=== PATIENT | male | born 1985 | race Caucasian/White ===

== ENCOUNTER 2021-01-21 16:59 | Observation (INO) | payer OTHER, SELFPAY ==
--- NOTE | ~2021-01-21 | CT_ITS ---
EXAMINATION: CT abdomen pelvis w con DATE: 01/21/2021 22:02 INDICATION: Right lower quadrant abdominal pain TECHNIQUE: Computed tomography (CT) of the abdomen and pelvis was performed with 100 cc Omnipaque 350 intravenous contrast. Automated exposure control and iterative reconstruction technique were employe d. Exam dose: 309.18 mGy-cm total exam DLP. COMPARISON: None. FINDINGS: The lung bases are clear of infiltrate or consolidation. Normal heart size. No pericardial or pleural effusion. A 2.6 cm stone is noted in the gallbladder. No gallbladder wall thickening or pericholecystic fluid o r fat stranding. No bile duct or pancreatic duct dilatation. No hepatic, this splenic or pancreatic space-occupying mass lesion is detected. No pancreatic calcifi cation. Splenic vertical dimension up to 11.7 cm, within normal limits. Normal morphology of the adrenal glands. No renal mass lesion or apparent urinary tract calculus or hydroureteronephrosis. The urinary bladder and prostate gland are unremarkable. Normal caliber of the abdominal aorta, without any macroscopic atherosclerotic calcification. No intr aperitoneal or retroperitoneal or pelvic mass lesion or adenopathy or ascites is evident. There are numerous shotty nonenlarged mesenteric and right lower quadrant lymph nodes. The appendix measures up to 8.6 cm diameter and there is mild fat stranding near the tip of the cecum and base of the appendix. Clinical correlation is advised for suspected appendicitis. There is no ap parent perforation or abscess. There is a moderately prominent of fecal material in the colon. No bowel obstruction or intraperitone al free air is evident. Very small fat-containing umbilical hernia. No inguinal hernia is detected. IMPRESSION: The appendix measures up to 8.67 m diameter with mild periappendiceal fat stranding, sug gesting appendicitis; no evidence of perforation or abscess Cholelithiasis Reviewed, dictated and finalized at [facility]. Reviewed, dictated and finalized at [facility]. IMPRESSION: The appendix measures up to 8.67 m diameter with mild periappendic eal fat stranding, suggesting appendicitis; no evidence of perforation or absce ss Cholelithiasis
[2021-01-21 17:21] VITALS: BP 135/89; PULSE 116; RESP 14; TEMP 37.2; O2SAT 99
[2021-01-21 17:39] LABS: Basophils Absolute Auto 0.1 K/mm3 (0.0-0.1); Basophils Percent Auto 0.7 % (0.2-1.2); Eosinophils Absolute Auto 0.1 K/mm3 (0-0.3); Eosinophils Percent Auto 0.6 % (0-4.4); Hematocrit 45.8 % (42.0-52.0); Hemoglobin 16.5 g/dL (14.0-18.0); Immature Granulocyte Absolute 0.02 K/mm3 (0.00-0.031); Immature Granulocyte Percent A 0.2 % (0-0.5); Lymphocytes Absolute Auto 1.22 K/mm3 (0.9-3.2); Lymphocytes Percent Auto 13.9 % (18.3-44.2); Mean Corpuscular Hemoglobin 30.8 pg (26-34); Mean Corpuscular Volume 85.4 fl (80-100); Monocytes Absolute Auto 0.8 K/mm3 (0.1-0.6); Monocytes Percent Auto 8.7 % (2.6-8.5); Neutrophils Absolute Auto 6.6 K/mm3 (1.3-6.7); Neutrophils Percent Auto 75.9 % (45.5-73.1); Platelet Count Result 159 k/mm3 (150-375); Red Blood Count 5.36 M/mm3 (4.6-6.20); Red Cell Distribution Width 11.7 % (11.5-14.5); White Blood Count 8.8 K/mm3 (4.5-10.0)
[2021-01-21 17:48] LABS: Alanine Aminotransferase 15 U/L (4-50); Albumin Level 5.1 g/dL (3.5-5.1); Alkaline Phosphatase 55 U/L (38-126); Anion Gap 10 mmol/L (8-16); Aspartate Amino Transferase 25 U/L (17-59); Bilirubin,Total 0.8 mg/dL (0.2-1.3); Blood Urea Nitrogen 13 mg/dL (9-20); Calcium 9.5 mg/dL (8.4-10.2); Carbon Dioxide 29 mmol/L (22-30); Chloride 100 mmol/L (98-107); Estimated CRCL calculation 74 ml/min; Estimated Glomerular Filt Rate > 60; Glucose 102 mg/dL (75-110); Lipase 48 U/L (23-300); Potassium 3.8 mmol/L (3.4-5.0); Sodium 139 mmol/L (137-145)
[2021-01-21 17:58] LABS: Add Urine Microscopic? YES; Appearance Urine Cloudy (Clear); Bilirubin Urine Negative (Negative); Blood Urine Negative (Negative); Color Urine Yellow (Yellow); Glucose Urine UA 1+ mg/dL (Negative); Ketones Urine Trace mg/dL (Negative); Leukocyte Esterase Ur Negative LEU/UL (Negative); Mucus Urine Heavy /lpf; Nitrate Urine Negative (Negative); Protein Urine 2+ mg/dL (Negative); RBC Urine 0-2 /hpf (0-2); Specific Grav Ur 1.026 (1.001-1.035); Squamous Epithelial Cell Urine Rare /hpf (Few); WBC Urine 0-3 /hpf
[2021-01-21 19:18] VITALS: BP 129/99; PULSE 115; RESP 19; O2SAT 100
--- NOTE | 2021-01-21 19:40 | PC.NURSE ---
Pt resting on cart in its lowest position with call button and personal items within reach. IV inserted and pt updated on poc. All questions and concerns addressed. Pt denies pain and discomfort at this time as well as nausea and emesis. Pt advised to press call button for assistance.
--- NOTE | 2021-01-21 19:54 | ED.ABDPAIN ---
HPI - Abdominal Pain General Chief Complaint: Abdominal Pain Stated Complaint: right lower abdomen pain, bloated Time Seen by Provider: 01/21/21 18:44 Source: patient Mode of arrival: ambulatory Limitations: no limitations History of Present Illness HPI narrative: Patient is a 35-year-old male who presents complaining of right lower quadrant pain x1 day. He reports pain was mild starting yesterday and has increased over the course of the day. He reports pain with palpation. He denies nausea, vomiting or diarrhea. He reports fever of 99.5 earlier today. He denies taking wxid-cjm-zpslmiy medications prior to arrival. Patient denies significant medical history. MD elicited complaint: abdominal pain Related Data Allergies Allergy/AdvReac Type Severity Reaction Status Date / Time No Known Allergies Allergy Verified 01/21/21 19:19 Review of Systems Review of Systems: Narrative: CONSTITUTIONAL: Denies fever, chills, or sweats. EYES: Denies visual changes, redness, or discharge. ENT: Denies rhinorrhea, congestion, sore throat, or otalgia. CARDIOVASCULAR: Denies chest pain, palpitations, or edema. RESPIRATORY: Denies cough or dyspnea. GASTROINTESTINAL: Reports right lower quadrant pain GENITOURINARY: Denies dysuria or hematuria. SKIN: Denies rash or itching. MUSCULOSKELETAL: Denies back pain, joint pain, or myalgia. NEUROLOGIC: Denies headache, numbness, dizziness, or weakness. PSYCHIATRIC: Denies anxiety or depression. [facility] Past Medical History Medical History No significant past medical history Surgical History Surgical History (Updated 01/21/21 @ 19:57 by RIMMA Rowe) No significant past surgical history Family History Family History (Updated 01/21/21 @ 19:57 by RIMMA Rowe) Other No significant family history Social History Social History (Updated 01/21/21 @ 19:57 by RIMMA Rowe) Smoking status: Former smoker Alcohol intake: current Alcohol use details: Occasional Substance use: never Gender identity (if verbalized by the patient): Male Comments At the time of signature, I have reviewed and agree with nursing past medical, surgical, social, and family history unless otherwise noted. Please see nursing chart for further information. There is no relevant family history pertinent to the presenting complaint. Exam Narrative: Exam Narrative: GENERAL: Well-appearing, well-nourished, and in no acute distress. HEAD: Normocephalic, atraumatic. EYES: EOMI. No redness or drainage. Conjunctiva are normal. ENT: Mucous membranes pink and moist. Nares clear. No rhinorrhea. TMs normal bilaterally. Throat normal. Uvula midline. NECK: AROM. Supple. No lymphadenopathy. CHEST: No respiratory distress. Clear to auscultation. HEART: Regular rate and rhythm. No murmur appreciated. Normal peripheral pulses. GI: Soft, without distention, right-sided tenderness with palpation. Bowel sounds normal in all quadrants. MUSCULOSKELETAL: No bony tenderness. EXTREMITIES: Normal range of motion. No edema. SKIN: Warm, dry, no rash. NEURO: No focal deficits. Alert and oriented x3. Gait steady. PSYCH: Normal affect. No signs of depression or anxiety. Course Vital Signs Vital signs: Vital Signs Temperature 37.2 C 01/21/21 17:21 Pulse Rate 116 H 01/21/21 17:21 Respiratory Rate 14 01/21/21 17:21 Blood Pressure 135/89 01/21/21 17:21 Pulse Oximetry 99 01/21/21 17:21 Temperature 37.2 C 01/21/21 21:40 Pulse Rate 112 H 01/21/21 21:40 Respiratory Rate 18 01/21/21 21:40 Blood Pressure 139/85 01/21/21 21:40 Pulse Oximetry 99 01/21/21 21:40 Reviewed. Patient has been instructed to follow-up with his PCP regarding his blood pressure. MDM - Abdominal Pain MDM Narrative Medical decision making narrative: Patient's CT was positive for appendicitis. Cholelithiasis is also seen on CT. Spoke with [facility]
--- NOTE | 2021-01-21 20:31 | PC.NURSE ---
Pt presents to ED with complaints of right lower quadrant pain. Pt states initial onset was yesterday and pain became more predominant today. Pt denies nvd, fever and chills. Pt states at this time he is not experiencing and pain or discomfort unless area is palpated. Pt alert and oriented x4. Vitals are stable and pt in no obvious distress. Pt provided a blanket and advised to press call button for assistance. Pt aware of poc and all questions and concerns addressed.
[2021-01-21 20:33] VITALS: BP 133/87; PULSE 108; RESP 18; O2SAT 99
--- NOTE | 2021-01-21 21:30 | PC.NURSE ---
CT called to verify if theyre coming to scan pt and was advised that machine was down due to power outage and they have been backed up. States she will come for pt as soon as she gets a chance.
[2021-01-21 21:40] VITALS: BP 139/85; PULSE 112; RESP 18; TEMP 37.2; O2SAT 99
--- NOTE | 2021-01-21 21:45 | PC.NURSE ---
Pt to ct via cart.
--- NOTE | 2021-01-21 21:57 | PC.NURSE ---
Pt returned from ct and is now resting on cart with call button and personal items within reach. Pt advised to press call button for assistance.
--- NOTE | 2021-01-21 22:56 | PC.NURSE ---
Pt provided lunch box and emily mist per ok from EDMD. Pt resting on cart in its lowest position with call button and personal items within reach. Pt advised to press call button for assistance.
[2021-01-21 23:51] VITALS: BP 137/89; PULSE 113; RESP 16; TEMP 37.3; O2SAT 98
[2021-01-22] VITALS (13 sets, daily range): BP systolic 118–160; BP diastolic 76–96; PULSE 82–111; RESP 14–20; TEMP 36.3–37.2; O2SAT 98–100; BMI 20.1
[2021-01-22] MEDS: SODIUM CHLORIDE 0.9% IV 1,000 ML 125 ML IV CONT (00:06)
--- NOTE | 2021-01-22 00:13 | PC.NURSE ---
Pt ambulated in [place] to restroom with steady gait noted.
--- NOTE | 2021-01-22 00:14 | PC.NURSE ---
Report called to [address] [place] [address]. Ok to send pt to floor.
--- NOTE | 2021-01-22 00:15 | PC.NURSE ---
Pt now back in room resting on cart in its lowest position with call button and personal items within reach. Pt advised to press call button for assistance. Pt updated on poc and advised that he will be NPO until surgery and voices his understanding.
--- NOTE | 2021-01-22 01:02 | ADMGEN ---
This patient, Davonte Edwards, was admitted to 2 Medical Room 242-01. Patient/family oriented to hospital policies and general routines including ID bracelet, bed and alarms, visiting hours, pain management, procedures, bathroom and other care routines, personal items, smoking policy, room service/diet, and visiting hours. Information on how to activate the Rapid Response Team has been discussed. Patient/Family are encouraged to report perceived risks to care and to ask questions if they do not understand what they are told or what they should do.
--- NOTE | 2021-01-22 07:45 | PC.NURSE ---
To OR via stretcher. Voiding without difficulty.
--- NOTE | 2021-01-22 07:57 | WPDANESEPPF ---
Anes - Initial Pre Proc Eval Procedure: Operation Date: 01/22/21 09:00 Proposed Procedures p Laparoscopic Appendectomy - Nika Toth MD Date/Time: 01/22/21 07:57 Surgeon: Nika Toth MD Pre Op Diagnosis: appendicitis Patient Data Age: 35 Gender: M Height: 5 ft 6 in Weight: 56.6 kg Last Vital Signs Temp 37.0 C 01/22/21 05:32 Pulse 90 01/22/21 05:32 Resp 16 01/22/21 05:32 BP 118/76 01/22/21 05:32 Pulse Ox 100 01/22/21 05:32 Allergies Allergy/AdvReac Type Severity Reaction Status Date / Time No Known Allergies Allergy Verified 01/22/21 01:47 Home Medications Medication Instructions Recorded Confirmed Type No Home Medications 01/22/21 01/22/21 History Laboratory Tests 01/21/21 01/21/21 01/21/21 17:25 17:25 17:42 WBC 8.8 K/mm3 K/mm3 (4.5-10.0) RBC 5.36 M/mm3 M/mm3 (4.6-6.20) Hgb 16.5 g/dL g/dL (14.0-18.0) Hct 45.8 % % (42.0-52.0) MCV 85.4 fl fl (80-100) MCH 30.8 pg pg (26-34) MCHC 36.0 g/dl g/dl (32-36) RDW 11.7 % % (11.5-14.5) Plt Count 159 k/mm3 k/mm3 (150-375) MPV 11.0 fl H fl (7.4-10.4) Immature Gran % (Auto) 0.2 % % (0-0.5) Neut % (Auto) 75.9 % H % (45.5-73.1) Lymph % (Auto) 13.9 % L % (18.3-44.2) [place] % (Auto) 8.7 % H % (2.6-8.5) Eos % (Auto) 0.6 % % (0-4.4) Baso % (Auto) 0.7 % % (0.2-1.2) Lymph # (Auto) 1.22 K/mm3 K/mm3 (0.9-3.2) [place] # (Auto) 0.8 K/mm3 H K/mm3 (0.1-0.6) Eos # (Auto) 0.1 K/mm3 K/mm3 (0-0.3) Baso # (Auto) 0.1 K/mm3 K/mm3 (0.0-0.1) Abs Immat Gran (auto) 0.02 K/mm3 K/mm3 (0.00-0.031) Absolute Neuts (auto) 6.6 K/mm3 K/mm3 (1.3-6.7) Absolute Nucleated RBC 0.0 K/mm3 K/mm3 (0.0-0.012) Nucleated RBC % 0.0 % % (0.0-0.2) Sodium 139 mmol/L mmol/L (137-145) Potassium 3.8 mmol/L mmol/L (3.4-5.0) Chloride 100 mmol/L mmol/L (98-107) Carbon Dioxide 29 mmol/L mmol/L (22-30) Anion Gap 10 mmol/L mmol/L (8-16) BUN 13 mg/dL mg/dL (9-20) Creatinine 1.10 mg/dL mg/dL (0.7-1.3) Estim Creat Clear Calc 74 ml/min ml/min Estimated GFR > 60 (59 - ) Glucose 102 mg/dL mg/dL (75-110) Calcium 9.5 mg/dL mg/dL (8.4-10.2) Total Bilirubin 0.8 mg/dL mg/dL (0.2-1.3) AST 25 U/L U/L (17-59) ALT 15 U/L U/L (4-50) Alkaline Phosphatase 55 U/L U/L (38-126) Total Protein 9.0 g/dL H g/dL (6.3-8.2) Albumin 5.1 g/dL g/dL (3.5-5.1) Lipase 48 U/L U/L (23-300) Urine Color Yellow (Yellow) Urine Appearance Cloudy H (Clear) Urine pH 5.0 (5.0-9.0) Ur Specific [place] 1.026 (1.001-1.035) Urine Protein 2+ mg/dL H mg/dL (Negative) Urine Glucose (UA) 1+ mg/dL H mg/dL (Negative) Urine Ketones Trace mg/dL mg/dL (Negative) Ur Blood (Man) Negative (Negative) Urine Nitrate Negative (Negative) Urine Bilirubin Negative (Negative) Urine Urobilinogen 4.0 mg/dL H mg/dL (<2.0) Leukocyte Esterase Rfl Negative MATT/UL MATT/UL (Negative) Urine RBC 0-2 /hpf /hpf (0-2) Urine WBC 0-3 /hpf /hpf Ur Squamous Epith Cells Rare /hpf /hpf (Few) Urine Mucus Heavy /lpf H /lpf Patient hx anesthesia problems: none Family hx anesthesia problems: none [facility] Past Medical History Medical History (Updated 01/21/21 @ 23:12 by RIMMA Rowe) No significant past medical history Surgical History Surgical History (Updated 01/22/21 @ 07:57 by Prateek Mendoza MD) Hx of tonsillectomy Family History Family History (Reviewed 01/22/21
[2021-01-22] MEDS: LACTATED RINGERS 1,000 ML 30 ML IV CONT ×2 (08:50→10:07)
--- NOTE | 2021-01-22 08:58 | PM.IMHP ---
H&P: HPI History of Present Illness Date/Time: 01/22/21 08:58 Pt is a 35 y/o M presenting to ED c/o RLQ abd pain over last 1-2 days. Pt reports pain was initially diffuse in nature but has now localized to RLQ. Pt reports some decreased appetite but otherwise no systemic symptomatology. Pt denies any previous episodes. Chief Complaint: acute appendicitis Review of Systems Constitutional: Constitutional: Denies anorexia, Denies chills, Denies fatigue, Denies fever(s), Denies headache(s), Denies lethargy, Denies malaise, Reports poor appetite, Denies weakness, Denies weight gain and Denies weight loss Eyes: Eyes: Denies no additional eye complaints ENT: Reports system reviewed and no additional complaints, except as documented Cardiovascular: Cardiovascular: Reports no additional cardiovascular complaints Respiratory: Respiratory: Reports no additional respiratory complaints Gastrointestinal: Gastrointestinal: Reports abdominal pain, Reports bloating, Denies change in stool character, Denies constipation, Denies heartburn, Denies diarrhea, Denies loose stools, Denies nausea and Denies vomiting Genitourinary: Genitourinary: Reports no additional male genitourinary complaints Musculoskeletal: Musculoskeletal: Reports no additional musculoskeletal complaints Integumentary/Breasts: Skin/Breast: Reports system reviewed and no additional complaints, except as docu Neurologic: Reports system reviewed and no additional complaints, except as documented Psychiatric: Psychiatric: Reports no additional psychiatric complaints Endocrine: Endocrine: Reports no additional endocrine complaints Hematologic/Lymphatic: Hematologic/Lymphatic: Reports no additional hematologic/lymphatic complaints Allergic/Immunologic: Allergic/Immunologic: Reports no additional allergic/immunologic complaints PMFSH Past Medical History Medical History No significant past medical history Surgical History Surgical History Hx of tonsillectomy Family History Family History Other No significant family history Social History Social History Smoking status: Never smoker Second hand tobacco smoke exposure: No Alcohol intake: never Alcohol use details: Occasional Substance use: never Gender identity (if verbalized by the patient): Male Spiritual care concerns: No Comments no FH of colorectal cancers or IBD Meds Home Medications and Allergies Home Medications Medication Instructions Recorded Confirmed Type No Home Medications 01/22/21 01/22/21 History Allergies Allergy/AdvReac Type Severity Reaction Status Date / Time No Known Allergies Allergy Verified 01/22/21 01:47 Vital Signs Vital Signs - 24 hr 01/21/21 17:21 01/21/21 19:18 01/21/21 20:33 Temperature 37.2 C Pulse Rate 116 H 115 H 108 H Respiratory Rate 14 19 18 Blood Pressure 135/89 129/99 H 133/87 Pulse Oximetry 99 100 99 01/21/21 21:40 01/21/21 23:51 01/22/21 01:18 Temperature 37.2 C 37.3 C 36.7 C Pulse Rate 112 H 113 H 110 H Respiratory Rate 18 16 16 Blood Pressure 139/85 137/89 130/80 Pulse Oximetry 99 98 98 01/22/21 05:32 01/22/21 07:51 Temperature 37.0 C 37.2 C Pulse Rate 90 102 H Respiratory Rate 16 Blood Pressure 118/76 149/84 H Pulse Oximetry 100 100 Exam Const: General: cooperative, healthy appearing, comfortable, well developed and acute distress mild Nutritional Appearance: average body habitus Orientation/consciousness: patient oriented x3 Limitations: no limitations HENMT: Head: normal to inspection, normocephalic and atraumatic Ears: hearing grossly normal bilaterally General nose exam: Normal external nose present Face and sinus: normal facial exam Mouth: Yes Normal oral and palatal mucosa present an
--- NOTE | 2021-01-22 09:05 | WPDHPUPDATE1 ---
History and Physical Update Update Date/Time: 01/22/21 09:05 History and Physical has been reviewed, including an updated exam of the patient. There are NO changes in the patient's condition. Risks, benefits, and alternatives have been discussed and questions answered. Patient agrees to proceed with procedure.
[2021-01-22] MEDS: ceFAZolin 2 GM/D5W 50 ML 2 GM/50 ML BAG IVPB (09:11)
[2021-01-22] MEDS: BUPIVACAINE/EPINEPHRINE 0.5% 30 ML VIAL INFILTRATE (09:44)
[2021-01-22] MEDS: KETOROLAC 30 MG/ML VIAL (*BKC) IV PUSH (09:45)
--- NOTE | 2021-01-22 10:09 | PM.DS ---
DS: Admitting Diagnosis Admitting Diagnosis Admitting Diagnosis: acute appendicitis DS: Discharge Diagnosis Discharge Diagnosis (1) Acute appendicitis: Qualifiers: Acute appendicitis type: unspecified acute appendicitis type Qualified Code(s): K35.80 - Unspecified acute appendicitis Code(s): K35.80 - Unspecified acute appendicitis Status: Acute Assessment and Plan: s/p lap appy, doing well, home c po anagesia, colace, routine postop care DS: Summary Hospital Course Reason for hospitalization: acute appendicitis Hospital Course: Pt is a 35 y/o M presenting to hospital overnight c/o RLQ abd pain. Workup in ED, including CT, significant for acute appendicitis. Pt admitted and made NPO. Pt taken urgently to OR on following morning for lap appy, please see op report for details. Postop, pt did well and was transferred back to floor. Pt was able to juan diet and pain well controlled c po analgesia. Pt now will be discharged home c po analgesia, colace. Pt to f/u 2 wks. Status at Discharge Functional status at discharge: independent ambulation Overall status at discharge: patient is progressing back to baseline Time Spent with Patient Time attestation: Total time spent providing and/or coordinating discharge services: Time spent: Less than 30 minutes Exam Const: General: cooperative, healthy appearing, comfortable and no acute distress Nutritional Appearance: average body habitus Orientation/consciousness: patient oriented x3 Resp: Effort & Inspection: normal respiratory effort Auscultation: clear to auscultation bilaterally Cardio: Rate: regular rate Rhythm: regular rhythm GI: Inspection: normal to inspection, non-distended and incision GI Palp: Yes Soft to palpation and Yes Tenderness to palpation present (GI) Other: soft, sl dist, bianka TTP, incisions C/D/I DS: Data Data Completed and Pending Pending studies at discharge: Pending at discharge 01/22/21 09:38 Surgical [PTH] Routine Labs on day of discharge: Labs from last 24 hours 01/21/21 01/21/21 01/21/21 17:42 17:25 17:25 WBC 8.8 RBC 5.36 Hgb 16.5 Hct 45.8 MCV 85.4 MCH 30.8 MCHC 36.0 RDW 11.7 Plt Count 159 MPV 11.0 H Immature Gran % (Auto) 0.2 Neut % (Auto) 75.9 H Lymph % (Auto) 13.9 L Mcd[place] % (Auto) 8.7 H Eos % (Auto) 0.6 Baso % (Auto) 0.7 Lymph # (Auto) 1.22 [place] # (Auto) 0.8 H Eos # (Auto) 0.1 Baso # (Auto) 0.1 Abs Immat Gran (auto) 0.02 Absolute Neuts (auto) 6.6 Absolute Nucleated RBC 0.0 Nucleated RBC % 0.0 Sodium 139 Potassium 3.8 Chloride 100 Carbon Dioxide 29 Anion Gap 10 BUN 13 Creatinine 1.10 Estim Creat Clear Calc 74 Estimated GFR > 60 Glucose 102 Calcium 9.5 Total Bilirubin 0.8 AST 25 ALT 15 Alkaline Phosphatase 55 Total Protein 9.0 H Albumin 5.1 Lipase 48 Urine Color Yellow Urine Appearance Cloudy H Urine pH 5.0 Ur Specific [place] 1.026 Urine Protein 2+ H Urine Glucose (UA) 1+ H Urine Ketones Trace Ur Blood (Man) Negative Urine Nitrate Negative Urine Bilirubin Negative Urine Urobilinogen 4.0 H Leukocyte Esterase Rfl Negative Urine RBC 0-2 Urine WBC 0-3 Ur Squamous Epith Cells Rare Urine Mucus Heavy H Discharge Plan Discharge Attending physician on discharge: Nika Toth Consulting providers: Drea Chi Discharging Clinician: Nika Toth Anticipated Discharge Date/Time: 01/22/21 14:00 Patient Disposition: Home, Self-Care Activity: other - see discharge instructions Diet: other - see discharge instructions Wound Care Instructions: other - see discharge instructions Discharge Instructions: DISCHARGE INSTRUCTION SHEET FOR HERNIA, GALLBLADDER AND APPENDIX SURGERIES DR. TOTH PATIENT TO TAKE HOME 1. May shower in 24 hours, no soaking in bath x 2weeks. 2.
--- NOTE | 2021-01-22 10:19 | PM.PROC ---
Procedure Note - Detailed Date of procedure: 01/22/21 Pre-op diagnosis: appendicitis Post-op diagnosis: same Procedure performed: Laparoscopic appendectomy Description of procedure: The patient was brought into the operating room placed in the supine position. After adequate induction of general anesthesia, the patient was prepped and draped in normal sterile fashion. A time-out was then done to verify the patient's identity as well as the procedure being performed. I began by making a 5 mm incision in the infraumbilical region. A 5 mm Optiview trocar within used to gain access into the peritoneal cavity. Once into the peritoneal cavity, CO2 gas was insufflated. After adequate pneumoperitoneum was achieved, the laparoscope was placed into the 5 mm trocar. Under direct visualization, I went ahead and placed a further 5 mm suprapubic port as well as a 12 mm port in the left lower abdomen. At this point, I was able to visualize cecum. The cecum was retracted both cephalad and medial, and this allowed us to expose the appendix. The appendix was noted to be very dilated, injected, and inflamed. There was no obvious perforation of the appendix. I then grasped the appendix near the tip of the appendix and retracted both anterior and lateral. This allowed exposure of the base of the appendix with the cecum. I then created a window with the [place] dissector between the appendix and the mesoappendix at the base of the appendix. Once this was achieved, a vascular staple load on the Endo-MAIK was placed through the 12 mm port site and subsequently transected the mesoappendix. I then reloaded the Endo-MAIK with a blue staple load and transected the base of the appendix with the cecum. Once the appendiceal specimen was completely detached, a Endo pouch was placed through the 12 mm port site. The appendix was placed into the Endo pouch and removed through the 12 mm port site. The appendix will now be sent to pathology for further review. I then visualized the right lower quadrant, both staple lines were noted to be intact and hemostatic. No other pathology was noted in the right lower quadrant or pelvis. I then moved the laparoscope to the 5 mm suprapubic port. I then visualized our port of entry at the 5 mm infraumbilical site. No iatrogenic injury or other pathology was seen in the upper abdomen. I then desufflated the abdomen and all ports were removed. The fascia of the 12 mm port site was closed with an 0 Vicryl figure of 8 suture. All port sites were then closed with 4 O Monocryl subcuticular suture. The patient tolerated the procedure well and was extubated in the operating room postoperatively. The patient will be transferred to the recovery room in stable condition. Anesthesia: GETA Surgeon: Nika Toth MD Estimated blood loss (mL): 5 Drains: No Packing: No Pathology: yes Complications: No immediate complications Condition: stable Disposition: PACU Findings: Acute uncomplicated appendicitis
--- NOTE | 2021-01-22 15:20 | PC.NURSE ---
On 01/22/21, the student, [Thomas Shafer ], provided care and completed [facility] documentation on this patient. I have reviewed the student's documentation and agree with the findings.
== END 2021-01-22 19:30 | disposition home or self-care (01) ==
LOC: ANHED 23:12 → ANH2MED 23:32
PROVIDERS: Emergency Medicine; Admitting Provider Surgery; Emergency Provider Nurse Practitioner; Visit Provider Surgery
PROC: 0DTJ4ZZ Resection of Appendix, Percutaneous Endoscopic Approach (ICD-10-PCS; CPT 44970; principal; 2021-01-22 09:00)
DX: K35.890 Other acute appendicitis without perforation or gangrene (principal); K80.20 Calculus of gallbladder without cholecystitis without obstruction; Z87.891 Personal history of nicotine dependence
CPT/HCPCS: 44970; 36415; 74177; 80053; 81001; 83690; 85025; 88304; 96361; 96365; 99285; G0378; J0131; J0330; J0690; J1100; J1885; J2250; J2405; J2704; J3010; J7030; J7120; Q9967

== ENCOUNTER 2022-09-08 12:15 | Outpatient (CLI) | payer BC, SELFPAY ==
[2022-09-08 15:33] LABS: Influenza Control Positive
[2022-09-08 15:39] LABS: Strep Group A RT-PCR DETECTED (Negative)
== END 2022-09-08 12:16 | disposition home or self-care (01) ==
LOC: ANHLAB 12:18
PROVIDERS: PCP Internal Medicine; Visit Provider Physician Assistant
DX: J02.9 Acute pharyngitis, unspecified (principal)
CPT/HCPCS: 87651; 87804